=== PATIENT | male | born 1960 | race Caucasian/White ===

== ENCOUNTER → 2017-03-04 | Outpatient (CLI) | payer BC ==
[~2017-03-04] MED LIST: ANSHCCR TOP; ERGO500037 PO; LEVO100T PO; PRT/20 PO
--- NOTE | 2017-03-04 08:19 | DIAGNOSTIC IMAGING REPORT ---
SOFT TISS HEAD/NECK-THYROID CLINICAL HISTORY: 56 years-old Male presenting with HYPOTHYROIDISM. TECHNIQUE: Real-time grayscale and color and spectral Doppler ultrasound imaging of the thyroid and base of the neck was performed. COMPARISON: None. FINDINGS: Right lobe: Heterogeneous parenchyma. The right lobe of the thyroid measures 4.7 x 1.8 x 1.5 cm. An upper pole well-defined hypoechoic, vascular nodule measuring 0.9 x 0.6 x 0.9 is wider than tall and without calcifications (intermediate suspicion). No parenchymal hyperemia. Left lobe: Heterogeneous parenchyma. The left lobe of the thyroid measures 4.3 x 1.8 x 1.1 cm. No nodules. No parenchymal hyperemia. Isthmus: The isthmus measures 4 mm in thickness. No nodules. IMPRESSION: Subcentimeter right upper pole nodule does not warrant fine-needle aspiration based on size at this time. Follow-up could be considered as clinically warranted. Electronically signed by: Ramírez Gary M.D. 03/04/2017 8:17 AM Dictated Date/Time: 03/04/2017 8:14 AM
== END | disposition home or self-care (01) ==
LOC: C.ULTRBC 07:47
PROVIDERS: ATTEND Nurse Practitioner Family
DX: E03.9 Hypothyroidism, unspecified (principal); E06.3 Autoimmune thyroiditis; E04.1 Nontoxic single thyroid nodule

== ENCOUNTER → 2017-03-20 | Outpatient (CLI) | payer BC ==
[~2017-03-20] VITALS: Ht 177.8 cm; Wt 97.2 kg
[2017-03-20 11:03] VITALS: BP 137/92; PULSE 60; Ht 177.8 cm; Wt 97.2 kg
== END | disposition home or self-care (01) ==
LOC: C.NEUR 10:49
PROVIDERS: ATTEND Internal Medicine Pulmonary Disease
DX: R53.83 Other fatigue (principal); E03.9 Hypothyroidism, unspecified

== ENCOUNTER → 2017-09-12 | Outpatient (CLI) | payer BC, OTHER ==
[~2017-09-12] MED LIST changes: +AZEL0.056 NAE; -LEVO100T PO; +LEVO112T4 PO
--- NOTE | 2017-09-12 10:55 | DIAGNOSTIC IMAGING REPORT ---
R FOOT MIN 3 VIEWS CLINICAL HISTORY: RIGHT FOOT PAIN pain COMPARISON: None. DISCUSSION: The bones and joint spaces appear intact. There is no evidence of fracture, dislocation or bony disease. Heel spur is present. Mild degenerative change first metatarsophalangeal joint. Bunion deformity lateral aspect distal first metatarsal. IMPRESSION: 1. Bunion deformity distal first metatarsal. 2. Heel spur. 3. Otherwise negative study. The above report was generated using voice recognition software. It may contain grammatical, syntax or spelling errors. Electronically signed by: Narendra Maier M.D. 09/12/2017 10:54 AM Dictated Date/Time: 09/12/2017 10:53 AM
== END | disposition home or self-care (01) ==
LOC: C.RDSM 17:32
PROVIDERS: ATTEND Physician Assistant
DX: M79.671 Pain in right foot (principal); M21.611 Bunion of right foot; M77.9 Enthesopathy, unspecified